=== PATIENT | male | born 1935 | race Caucasian/White ===

== ENCOUNTER 2016-11-26 18:13 | Emergency (ER) | payer OTHER ==
[2016-11-26 22:13] VITALS: BP 140/78
== END 2016-11-26 22:13 | disposition home or self-care (01) ==
LOC: ED 18:13
DX: S90.31XA Contusion of right foot, initial encounter (principal); R07.89 Other chest pain; W17.89XA Other fall from one level to another, initial encounter; Y93.89 Activity, other specified; Y99.8 Other external cause status; Y92.89 Other specified places as the place of occurrence of the external cause